=== PATIENT | male | born 1940 | race African-American/Black ===

== ENCOUNTER → 2016-11-18 | Outpatient (CLI) | payer OTHER ==
[~2016-11-18] MED LIST: ASPI-1035 PO; ATOR20TA65 PO; CARV6.2548 PO; CLOP75TA33 PO; FAMO-134 PO; FURO40TA5 PO; MIDODRINE; ONDA4TAB51 PO; PACERONE; PARO-41 PO; TAMS0.4C31 PO
== END | disposition home or self-care (01) ==
LOC: RAD 16:20
PROVIDERS: ATTEND Internal Medicine Clinical Cardiac Electrophysiology
DX: T82.528A Displacement of other cardiac and vascular devices and implants, initial encounter (principal); I51.7 Cardiomegaly; Y83.2 Surgical operation with anastomosis, bypass or graft as the cause of abnormal reaction of the patient, or of later complication, without mention of misadventure at the time of the procedure; Y92.89 Other specified places as the place of occurrence of the external cause